=== PATIENT | male | born 1990 | race African-American/Black ===

== ENCOUNTER 2016-12-14 20:56 | Emergency (ER) | payer SELFPAY ==
[~2016-12-14] VITALS: Ht 190.5 cm; Wt 113.0 kg
[2016-12-15 01:20] VITALS: BP 128/77
== END 2016-12-15 03:13 | disposition home or self-care (01) ==
LOC: ER 20:57
DX: I31.9 Disease of pericardium, unspecified (principal); I10 Essential (primary) hypertension; F17.210 Nicotine dependence, cigarettes, uncomplicated
CPT/HCPCS: 71020; 93005; 99284; Z7610